=== PATIENT | male | born 1995 | race Caucasian/White ===

== ENCOUNTER 2017-12-16 17:36 | Emergency (ER) | payer BC ==
[~2017-12-16] VITALS: Ht 182.9 cm; Wt 68.1 kg
[~2017-12-16 17:36] MED LIST: NAPROSYN500 MG PO
[2017-12-16 17:57] VITALS: BP 126/70
[2017-12-16] MEDS ORDERED: IBUPROFEN800 MG PO (19:21)
== END 2017-12-16 20:16 | disposition home or self-care (01) ==
LOC: EME 17:36 → EXP 17:36
PROC: 2W3QX1Z Immobilization of Right Lower Leg using Splint (ICD-10-PCS; principal; 2017-12-16)
DX: S93.401A Sprain of unspecified ligament of right ankle, initial encounter (principal); X50.9XXA Other and unspecified overexertion or strenuous movements or postures, initial encounter; Y93.83 Activity, rough housing and horseplay
CPT/HCPCS: 73610; 73630; 99281; 99284